=== PATIENT | female | born 1985 | race Caucasian/White ===

== ENCOUNTER 2016-07-22 22:48 | Emergency (ER) | payer OTHER ==
--- NOTE | 2016-07-23 00:41 | ED ORDER SUMMARY ---
..... Patient: TRELL JC OrderSheet [facility] VisitID: [id number] [place] [address] 31y, F Registration Date/Time: 07/22/2016 ORDER SHEET Weight: 52.1 kg (stated) Allergies: No Known Drug Allergy GENERAL ORDERS: CBC w Diff Urgent (23:07/22/2016 Chalino Brown) (Ack 23:16 AMcQuoid ER Tech1) (23:37 HSoule) CMP Urgent (:07/22/2016 Chalino Brown) (Ack 23:16 AMcQuoid ER Tech1) (23:37 HSoule) UA-Culture if indicated Urgent (:07/22/2016 Chalino Brown) (Ack 23:16 AMcQuoid ER Tech1) (0:36 HSoule) Lipase Urgent (:07/22/2016 Chalino Brown) (Ack 23:16 AMcQuoid ER Tech1) (23:39 AMcQuoid ER Tech1) Urine Urgent (:07/22/2016 Chalino Brown) (Ack 23:16 AMcQuoid ER Tech1) (0:36 HSoule) Pulse oximeter (:07/22/2016 Chalino Brown) (Ack 23:16 AMcQuoid ER Tech1) (23:20 HSoule) PCT (Procalcitonin) Urgent (00:12 07/23/2016 Chalino Brown) (0:18 AMcQuoid ER Tech1) MEDICATION ORDERS: Imodium PO 2 mg (15 min after zofran) (:07/22/2016 Chalino Brown) (Ack 23:20 HSoule) (23:39 HSoule) IV FLUIDS: IV NS : initial bolus 1000 mL (1000 mL/hr), then none - for X1 (NOW) (:07/22/2016 Chalino Brown) (23:20 HSoule) Zofran IV 4 mg (NOW) (:07/22/2016 Chalino Brown) (23:21 HSoule) Zofran IV 4 mg (NOW) (00:48 07/23/2016 Chalino Brown) (0:55 HSoule) ORDER SHEET NOTES: [Electronically signed by Shabana Coyne (04:07/23/2016)] [Electronically signed by Sav Barba Dr. (07:25 07/23/2016)] [Electronically locked/signed by Shabana Coyne (04:07/23/2016)]
--- NOTE | 2016-07-23 00:41 | ED NURSING NOTES ---
Clinical Report - Nurses [facility] [address] [place] [address] 07/22/2016 22:48 Patient: TRELL JC TRIAGE Triage time 23:07 Jul 22 2016. Acuity: LEVEL 3. Chief Complaint: NAUSEA, VOMITING and DIARRHEA. SEPSIS SCREEN: Sepsis Screen: negative. Negative (no infection suspected/documented). DIANNE COMA SCORE: Dianne Coma Scale: 15- eyes open spontaneously (4); best verbal response- oriented x 4 (5); best motor response- obeys commands (6). --23:13 Shabana Coyne 23:07 07/22/16. BP: 121/78. HR: 93. RR: 20. O2 saturation: 100%. Temp: 98 F (oral). Pain level now: 0/10. --23:13 Shabana Coyne. Weight: 52.1 kg stated. Height/Length: 65 inches Per Patient. BMI: 19.1. --23:08 Shabana Coyne. Medications Adderall Oral. --23:09 Shabana Coyne. Allergies No Known Drug Allergy. --23:09 Shabana Coyne. Medication/allergy information source: the patient. --23:13 Shabana Coyne. History Arrived by private vehicle. Historian: patient. Accompanied by family. Primary physician (Brooklynn). This started today. ( Patient states that she has been vomiting today all day and has not been able to stop throwing up. She denies belly pain.). Treatment ONLINE PROJECT MANAGER: None. PAST MEDICAL HX: Immunizations: up-to-date. Last normal menstrual period- 1 months irregular. SOCIAL HX: Never smoker. Occasional alcohol use. No drug use. No recent travel. No infectious disease exposure. No known contact with a sick individual. ABUSE ASSESSMENT: No report of abuse. FALL RISK ASSESSMENT: Fall risk assessment completed. No fall risk identified. NUTRITIONAL RISK ASSESSMENT: The nutritional risk assessment revealed no deficiencies. FUNCTIONAL ASSESSMENT: Functional assessment: no impairments noted. LEARNING NEEDS ASSESSMENT: The learning needs assessment revealed no barriers. SKIN INTEGRITY ASSESSMENT: Skin integrity risk assessment completed. No skin integrity risk identified. --23:13 Shabana Conye. PROBLEMS: Risk Factors. Dysmenorrhea. Tubal october 08 . . Gastroesophageal Reflux. Immunizations. LNMP - Last Normal Menstrual Period. --23:10 Shabana Coyne. ADDITIONAL SURGERIES: Appendectomy. IUD embedded in uturis had surg to remove. . IUD removal. Previous Abdominal Surgery. Tubal Ligation. Tubes removed. --23:10 Shabana Coyne. Interventions ID band on patient. To treatment room. --23:13 Shabana Coyne. PHYSICAL ASSESSMENT 23:13 07/22/16. Ambulatory to room. Patient gowned. GENERAL / NEURO / PSYCH: Alert. Oriented X 4. Appears in no acute distress. HEENT: Mucous membranes are pink. RESPIRATORY: Respirations not labored. CVS: Normal sinus rhythm noted. GI / : Abdomen soft and nontender. SKIN: Skin is warm and dry. --23:13 Shabana Coyne. NURSING PROGRESS NOTES Pulse oximeter and NIBP monitor placed on patient; monitor alarms on. Patient gowned. Reassurance given to the patient. Two patient identifiers checked. Call light placed in reach. Side rails up x 1. Bed placed in lowest position. Brakes of bed on. Patient ready for evaluation- chart flagged and ED physician notified. --23:14 Shabana Coyne 23:18 07/22/2016 Zofran (Ondansetron HCl) IVP 4 mg given over 2 minute(s) via site #1. Allergies verified and confirmed 5 rights. IV patency established. IV site checked: no pain, redness, or swelling. IV flushed thoroughly pre- and post-medication administration. IVP given by RN. --23:21 Shabana Coyne 23:20 07/22/2016 Site #1 started via IV in the left antecubital space with an 20g angiocath, with aseptic technique and good blood return; one attempt. Blood drawn: rainbow set. Labeled in the presence of the patient and sent to the lab. Saline lock flushed with saline. --23:20 Tejas Ken R.N. 23:20 07/22/2016 Started bag #1 1000 mL IV Fluids IV NS (Saline); at 1000 mL/hr over 1 hour(s) via site #1 via IV pump. Allergies verified and confirmed 5 rights. IV patency established. IV site checked: no pain, redness, or swelling. IV flushed thoroughly pre- and post-medication administration. --23:20 Shabana Coyne Patient ID band checked for patient name and birthdate: patient confirmed. Blood samples drawn from the left antecubital space peripheral IV site by nurse ; labeled in presence of the patient and sent to lab: rainbow set. Line flushed with 10 mL normal saline post blood draw. --23:21 Shabana Coyne 23:39 07/22/2016 Imodium (Loperamide HCl) PO Capsules 2 mg given. Allergies verified and confirmed 5 rights. --23:39 Shabana Coyne 00:02 07/23/16. BP: 115/82. HR: 90. RR: 20. O2 saturation: 100% on room air. --00:03 Shabana Coyne Reassessment after medication administered. Overall patient status- she states feels better. --00:03 Shabana Coyne 00:04 07/23/2016 IV Fluids IV NS Discontinued: bag #1 completed. Total amount infused: 1000 mL. IV patency established. IV site checked: no pain, redness, or swelling. IV flushed thoroughly. --00:14 Shabana Coyne Patient ID band checked for patient name and birthdate: patient confirmed. Instructions provided to collect clean catch urine and patient verbalized understanding. Clean catch urine collected with return of yellow-colored clear urine; sample sent to lab for urinalysis, culture and HCG. Specimen labeled in the presence of the patient. --00:18 Shabana Coyne 00:50 07/23/2016 Zofran (Ondansetron HCl) IVP 4 mg given over 2 minute(s) via site #1. Allergies verified and confirmed 5 rights. IV patency established. IV site checked: no pain, redness, or swelling. IV flushed thoroughly pre- and post-medication administration. IVP given by RN. --00:55 Shabana Coyne 00:50 07/23/2016 Site #1 removed upon discharge. Catheter intact. Bandaid applied. --00:55 Shabana Coyne. DISPOSITION / DISCHARGE 00:56 07/23/16. Condition at departure: improved and stable. The goals identified in the patient's plan of care were met. No learning barriers present. Discharge instructions provided and reviewed with the patient and spouse. Reviewed medication(s) side effects, precautions, dosing and course information. Prescription(s) given to the patient. Reviewed need for increased fluid intake. Patient verbalized understanding. Written instructions provided in Spanish. ( Follow up with PCP as needed.). The patient was discharged by the physician. She was discharged home and accompanied by spouse. She left the Emergency Department ambulatory and via private vehicle. Spouse driving. FALL RISK ASSESSMENT: Fall risk assessment completed. No fall risk identified. --00:56 Shabana Coyne 00:55 07/23/16. BP: 110/68. HR: 85. RR: 20. O2 saturation: 100% on room air. Temp: 98.3 F (oral). Pain level now: 0/10. --00:56 Shabana Coyne. Locked/Released at 07/23/2016 4:27 by Shabana Coyne,
--- NOTE | 2016-07-23 00:41 | ED ORDER SUMMARY ---
..... Patient: TRELL JC OrderSheet [facility] VisitID: [id number] [place] [address] 31y, F Registration Date/Time: 07/22/2016 ORDER SHEET Weight: 52.1 kg (stated) Allergies: No Known Drug Allergy GENERAL ORDERS: CBC w Diff Urgent (23:07/22/2016 Chalino Brown) (Ack 23:16 AMcQuoid ER Tech1) (23:37 HSoule) CMP Urgent (:07/22/2016 Chalino Brown) (Ack 23:16 AMcQuoid ER Tech1) (23:37 HSoule) UA-Culture if indicated Urgent (:07/22/2016 Chalino Brown) (Ack 23:16 AMcQuoid ER Tech1) (0:36 HSoule) Lipase Urgent (:07/22/2016 Chalino Brown) (Ack 23:16 AMcQuoid ER Tech1) (23:39 AMcQuoid ER Tech1) Urine Urgent (:07/22/2016 Chalino Brown) (Ack 23:16 AMcQuoid ER Tech1) (0:36 HSoule) Pulse oximeter (:07/22/2016 Chalino Brown) (Ack 23:16 AMcQuoid ER Tech1) (23:20 HSoule) PCT (Procalcitonin) Urgent (00:12 07/23/2016 Chalino Brown) (0:18 AMcQuoid ER Tech1) MEDICATION ORDERS: Imodium PO 2 mg (15 min after zofran) (:07/22/2016 Chalino Brown) (Ack 23:20 HSoule) (23:39 HSoule) IV FLUIDS: IV NS : initial bolus 1000 mL (1000 mL/hr), then none - for X1 (NOW) (:07/22/2016 Chalino Brown) (23:20 HSoule) Zofran IV 4 mg (NOW) (:07/22/2016 Chalino Brown) (23:21 HSoule) Zofran IV 4 mg (NOW) (00:48 07/23/2016 Chalino Brown) (0:55 HSoule) ORDER SHEET NOTES: [Electronically signed by Shabana Coyne (04:07/23/2016)] [Electronically signed by Sav Barba Dr. (07:25 07/23/2016)] [Electronically locked/signed by Shabana Coyne (04:07/23/2016)]
--- NOTE | 2016-07-23 00:41 | ED CLINICAL REPORT ---
Clinical Report - Physicians/Mid Levels [facility] [address] [place] [address] 07/22/2016 22:48 Patient: TRELL JC Arrived- By private vehicle. Historian- patient. HISTORY OF PRESENT ILLNESS Chief Complaint: VOMITING and DIARRHEA. This started today and is still present (worsening). It was abrupt in onset and has been intermittent but is not gone now. No recent travel. She has had nausea, vomiting and diarrhea. No black stools, bloody stools, abdominal pain, flank pain or history of possible bad food exposure. Has not recently been camping or on antibiotics. She has had contact with a sick significant other. The illness is described as moderate. Similar symptoms previously: Recent medical care: The patient was seen recently by a health care provider. REVIEW OF SYSTEMS No fever, muscle aches, difficulty with urination, dark urine or chest pain. No difficulty breathing or skin rash. All systems otherwise negative, except as recorded above. PAST HISTORY See nurses notes. Medications: Adderall Oral. Allergies: No Known Drug Allergy. SOCIAL HISTORY Never smoker. No alcohol use or drug use. No recent travel. Is a local resident. ADDITIONAL NOTES The nursing notes have been reviewed. PHYSICAL EXAM Vital Signs: 07/22/2016 23:07 BP: 121/78. HR: 93. RR: 20. O2 saturation: 100%. Temp: 98 F. Pain level now: 0/10. Blood pressure normal. Oxygen saturation normal. Appearance: Alert. Oriented X3. No acute distress. Eyes: Pupils equal, round and reactive to light. Eyes normal inspection. ENT: Ears normal. Nose normal. Pharynx normal. Neck: Normal inspection. Neck supple. CVS: Normal heart rate and rhythm. Heart sounds normal. Pulses normal. Respiratory: No respiratory distress. Breath sounds normal. No rales, rhonchi or wheezes. Abdomen: Soft and nontender. Bowel sounds normal. (negative Corrales's. No tenderness at McBurney's point. No rebound or guarding.). Back: Normal inspection. Skin: Skin warm and dry. Normal skin color. No rash. Normal skin turgor. Extremities: Extremities exhibit normal ROM. No lower extremity edema. LABS, X-RAYS, AND EKG Laboratory Tests: UA-Culture if indicated: (PAYTON: 07/22/2016 00:15) ( [facility] [place] 07/23/2016 00:32) Final results Test Result Flag Units (Reference) URINE COLOR YELLOW URINE APPEARANCE CLEAR URINE GLUCOSE NEGATIVE (NEGATIVE) URINE BILIRUBIN NEGATIVE (NEGATIVE) URINE KETONE 3+ (NEGATIVE) URINE SPECIFIC GRAVITY 1.015 (1.010-1.030) URINE PH 7.5 (5.0-8.0) URINE PROTEIN NEGATIVE (NEGATIVE) URINE UROBILINOGEN 0.2 EU/dL (0.2-1.0) URINE NITRITE NEGATIVE (NEGATIVE) URINE BLOOD NEGATIVE (NEGATIVE) URINE LEUK ESTERASE NEGATIVE (NEGATIVE) URINE RBC RARE rbc/hpf (0-1) URINE WBC NONE SEEN wbc/hpf (0-1) URINE EPITHELIAL CELLS 0-1 EPI/hpf (0-5) URINE BACTERIA NONE SEEN (NONE SEEN) URINE COMMENT CULT NOT INDICATED URINE CULTURES ARE SET-UP BASED ON THE FOLLOWING CRITERIA:POSITIVE NITRITEPOSITIVE LEUKOCYTE ESTERASEGREATER THAN 10 WHITE BLOOD CELLSMODERATE (2+) OR GREATER BACTERIA Urine: (PAYTON: 07/22/2016 00:15) ( [facility] [place] 07/23/2016 00:24) Final results Test Result Flag Units (Reference) URINE NEGATIVE CBC w Diff: (PAYTON: 07/22/2016 23:15) ( [facility] 07/22/2016 23:40) Final results Test Result Flag Units (Reference) WHITE BLOOD COUNT 15.4 H K/uL (4.5-11.5) RED BLOOD COUNT 5.24 H M/uL (4.00-5.20) HEMOGLOBIN 14.9 gm/dL (12.0-16.0) HEMATOCRIT 46.0 % (36.0-46.0) MEAN CELL VOLUME 88 fL (80-100) MEAN CORPUSCULAR HGB 29 pg (26-34) MEAN CORPUSCULAR HGB CONC 33 g/dL (31-37) RED CELL DISTRIBUTION WIDTH 13.0 % (11.6-14.8) PLATELET COUNT 229 K/uL (150-400) NEUTROPHIL % 91.0 H % (50-75) LYMPH % 6.7 L % (25-40) MONO % 2.3 L % (3-14) CMP: (PAYTON: 07/22/2016 23:15) ( MsgRcvd 07/22/2016 23:35) Final results Test Result Flag Units (Reference) GLUCOSE 114 H mg/dL (70-110) BUN 18 mg/dL (7-18) CREATININE 0.9 mg/dL (0.6-1.3) Estimated GFR >60 mL/min Estimated GFR- >60 mL/min Note: Persistent reduction over 3 months in eGFR<60 mL/min/1.73 m2 defines CKD. Patients with eGFR values>=60 mL/min/1.73 m2 may also have CKD if evidence ofpersistent proteinuria. Additional information may be foundat www.kidney.org. SODIUM 139 mmol/L (136-145) POTASSIUM 4.5 mmol/L (3.5-5.1) CHLORIDE 102 mmol/L (98-107) CARBON DIOXIDE 24 mmol/L (21-32) CALCIUM 9.0 mg/dL (8.5-10.1) TOTAL PROTEIN 8.3 H g/dL (6.4-8.2) ALBUMIN 4.7 g/dL (3.3-5.0) BILIRUBIN, TOTAL 0.4 mg/dL (0.0-1.0) ALKALINE PHOSPHATASE 51 U/L (46-116) AST (SGOT) 20 U/L (15-37) ALT (SGPT) 26 U/L (12-78) LIPASE 181 U/L (73-393) . PROGRESS AND PROCEDURES Course of Care: the patient is a pleasant 31-year-old female with no pertinent past medical history presenting for evaluation ofnausea vomiting diarrhea. Patient has no abdominal pain. Patient is mainly concerned about the nausea and vomiting and diarrhea. Abdominal exam is benign. Did not feel patient needs any imaging of her abdomen at this time. Denies the patient has surgical abdomen. We'll evaluate patient's symptoms with CBC and electrolytesfor any metabolic derangements from her diarrhea. Patient likely with mild dehydration. We'll obtain laboratory studies and provide fluids With the nausea medication. Patient was reevaluated after the nausea medication as been given. Patient reports that she feels much better. Patient resting in bed in no acute distress. Repeat abdominal exam continues to be benign. We are still waiting patient's urinalysis. Patient's urinalysis did not show any acute abnormalities. No urinary tract infection. Patient with signs of dehydration on examination. patient was blood cell count up. Do not feel patient has more sinister etiology for her elevation in her white blood cell count. Patient likely with seemed viral type illness as significant other. Patient noted to be doing much better after medications and IV fluids given. did not the patient is being admitted to the hospital or require further emergency department evaluation. Patient's abdomen exam is benign. Discussed the patient workup, diagnosis, home care, follow-up, and return precautions. Answered. The patient expressed understanding of these instructions and was agreeable to them. Disposition: Discharged. Condition: good. CLINICAL IMPRESSION Vomiting with nausea (acute). Diarrhea (acute). 07/23/2016 00:02 BP: 115/82. HR: 90. RR: 20. O2 saturation: 100%. 07/22/2016 23:07 BP: 121/78. HR: 93. RR: 20. O2 saturation: 100%. Temp: 98 F. Pain level now: 0/10. Blood pressure normal. Oxygen saturation normal. Mild dehydration (acute). Mild leukocytosis (acute). No bandemia. INSTRUCTIONS Warnings: GENERAL WARNINGS: Return or contact your physician immediately if your condition worsens or changes unexpectedly, if not improving as expected, or if other problems arise. SPECIFICALLY, return if you develop pain, fever, vomiting, the inability to keep fluids down, blood in vomitus, blood in diarrhea, fainting or lightheadedness. Your Current Medications: CONTINUE TAKING THE FOLLOWING MEDICATIONS: Adderall Oral. Prescription Medications: Zofran (orally disintegrating tablets) 4 mg: take 1 orally every 8 hours as needed for nausea and vomiting. Dispense ten (10). No refill. Substitution is permissible. OTC Medications: Imodium (available over the counter): take according to label instructions. Follow-up: Return to the emergency department as needed. Follow up with your doctor in three days. Reason for referral: recheck today's concerns. Summary of care provided to patient via paper. Screening today revealed the patient's blood pressure to be in the normal range. The patient should follow up with a primary care provider for blood pressure management. (Electronically signed by Sav Barba Dr. 07/23/2016 7:25)
--- NOTE | 2016-07-23 07:25 | ED MAR SUMMARY ---
..... Medication Administration Record [facility] [address] [place] [address] Patient: TRELL JC Visit ID: [id number] 31y, F Weight: 52.1 kg Height/Length: 65 in BMI: 19.1 ALLERGIES: No Known Drug Allergy Given 23:18 07/22/2016 Shabana Coyne, Medication Administered: ZOFRAN [IVP] (ONDANSETRON HCL), Dose: 4 mg IVP over 2 minute(s), Site: #1. Medication Ordered: Zofran IV 4 mg (NOW). Start 23:20 07/22/2016 Shabana Coyne,, Stop 00:04 07/23/2016 Shabana Coyne, Medication Administered: IV NS (SALINE), Dose: IV Fluids over 1 hour(s), Rate: 1000 mL/hr, Dispensed: 1000 mL bag, Site: #1 left AC. Medication Ordered: IV NS : initial bolus 1000 mL (1000 mL/hr), then none - for X1 (NOW). Given 23:39 07/22/2016 Shabana Coyne, Medication Administered: IMODIUM [PO] (LOPERAMIDE HCL), Dose: 2 mg Capsules PO. Medication Ordered: Imodium PO 2 mg (15 min after zofran). Given 00:50 07/23/2016 Shabana Coyne, Medication Administered: ZOFRAN [IVP] (ONDANSETRON HCL), Dose: 4 mg IVP over 2 minute(s), Site: #1. Medication Ordered: Zofran IV 4 mg (NOW).
--- NOTE | 2016-07-23 07:25 | ED MAR SUMMARY ---
..... Medication Administration Record [facility] [address] [place] [address] Patient: TRELL JC Visit ID: [id number] 31y, F Weight: 52.1 kg Height/Length: 65 in BMI: 19.1 ALLERGIES: No Known Drug Allergy Given 23:18 07/22/2016 Shabana Coyne, Medication Administered: ZOFRAN [IVP] (ONDANSETRON HCL), Dose: 4 mg IVP over 2 minute(s), Site: #1. Medication Ordered: Zofran IV 4 mg (NOW). Start 23:20 07/22/2016 Shabana Coyne,, Stop 00:04 07/23/2016 Shabana Coyne, Medication Administered: IV NS (SALINE), Dose: IV Fluids over 1 hour(s), Rate: 1000 mL/hr, Dispensed: 1000 mL bag, Site: #1 left AC. Medication Ordered: IV NS : initial bolus 1000 mL (1000 mL/hr), then none - for X1 (NOW). Given 23:39 07/22/2016 Shabana Coyne, Medication Administered: IMODIUM [PO] (LOPERAMIDE HCL), Dose: 2 mg Capsules PO. Medication Ordered: Imodium PO 2 mg (15 min after zofran). Given 00:50 07/23/2016 Shabana Coyne, Medication Administered: ZOFRAN [IVP] (ONDANSETRON HCL), Dose: 4 mg IVP over 2 minute(s), Site: #1. Medication Ordered: Zofran IV 4 mg (NOW).
--- NOTE | 2016-07-23 07:25 | ED MED RECONCILIATION SUMMARY ---
Patient: TRELL JC Medication Reconciliation Report [facility] VisitID: [id number] [address] [place] [address] 31y, F Registration Date/Time: 07/22/2016 Weight: 52.1 kg Height/Length: 65 in. BMI: 19.1 ALLERGIES: No Known Drug Allergy The patient's Home Medications are listed below: CONTINUE TAKING THE FOLLOWING MEDICATIONS: Adderall Oral The source(s) of the original Home Medication information: patient The following Medications were given to the patient in the Emergency Department: IV NS IV Fluids bolus 0, then 1000 mL/hr, administered: 07/22/2016 11:20:00 PM Zofran [IVP] IVP 4 mg, administered: 07/22/2016 11:18:00 PM Imodium [PO] PO 2 mg, administered: 07/22/2016 11:39:00 PM Zofran [IVP] IVP 4 mg, administered: 07/23/2016 12:50:00 AM The following Medications were prescribed to the patient: Zofran (orally disintegrating tablets) 4 mg: take 1 orally every 8 hours as needed for nausea and vomiting. Dispense ten (10). No refill. Substitution is permissible. -- Sav Barba Dr. Imodium (available over the counter): take according to label instructions. -- Sav Barba Dr.
--- NOTE | 2016-07-23 07:25 | ED DISCHARGE INSTRUCTIONS ---
Patient: RTELL JC General Instructions [facility] VisitID: [id number] [place] [address] 31y, F Registration Date/Time: 07/22/2016 Vomiting with nausea (acute). Diarrhea (acute). 07/23/2016 00:02 BP: 115/82. HR: 90. RR: 20. O2 saturation: 100%. 07/22/2016 23:07 BP: 121/78. HR: 93. RR: 20. O2 saturation: 100%. Temp: 98 F. Pain level now: 0/10. Blood pressure normal. Oxygen saturation normal. Mild dehydration (acute). Mild leukocytosis (acute). No bandemia. INSTRUCTIONS Warnings: GENERAL WARNINGS: Return or contact your physician immediately if your condition worsens or changes unexpectedly, if not improving as expected, or if other problems arise. SPECIFICALLY, return if you develop pain, fever, vomiting, the inability to keep fluids down, blood in vomitus, blood in diarrhea, fainting or lightheadedness. Your Current Medications: CONTINUE TAKING THE FOLLOWING MEDICATIONS: Adderall Oral. Prescription Medications: Zofran (orally disintegrating tablets) 4 mg: take 1 orally every 8 hours as needed for nausea and vomiting. Dispense ten (10). No refill. Substitution is permissible. OTC Medications: Imodium (available over the counter): take according to label instructions. Follow-up: Return to the emergency department as needed. Follow up with your doctor in three days. Reason for referral: recheck today's concerns. Summary of care provided to patient via paper. Screening today revealed the patient's blood pressure to be in the normal range. The patient should follow up with a primary care provider for blood pressure management. ADDITIONAL INFORMATION Vomiting [6Yr-Adult] Vomiting is a common symptom that may be due to different causes. These include gastroenteritis ("stomach flu"), food poisoning and gastritis. There are other more serious causes of vomiting which may be hard to diagnose early in the illness. Therefore, it is important to watch for the warning signs listed below. The main danger from repeated vomiting is dehydration. This is due to excess loss of water and minerals from the body. When this occurs, body fluids must be replaced. Home Care: If symptoms are severe, rest at home for the next 24 hours. You may use acetaminophen (Tylenol) or ibuprofen (Motrin, Advil) to control fever, unless another medicine was prescribed. [NOTE : If you have chronic liver or kidney disease or ever had a stomach ulcer or GI bleeding, talk with your doctor before using these medicines.] (Aspirin should never be used in anyone under 18 years of age who is ill with a fever. It may cause severe liver damage.) Avoid tobacco and alcohol use, which may worsen your symptoms. If medicines for vomiting were prescribed, take as directed. Once vomiting stops, then follow these guidelines: During The First 12-24 Hours follow the diet below: FRUIT JUICES: Apple, grape juice, clear fruit drinks, and electrolyte replacement drinks. BEVERAGES: Soft drinks without caffeine; mineral water (plain or flavored), decaffeinated tea and coffee. SOUPS: Clear broth, consomm and bouillon DESSERTS: Plain gelatin, popsicles and fruit juice bars. As you feel better, you may add 6-8 ounces of yogurt per day. During The Next 24 Hours you may add the following to the above: Hot cereal, plain toast, bread, rolls, crackers Plain noodles, rice, mashed potatoes, chicken noodle or rice soup Unsweetened canned fruit (avoid pineapple), bananas Limit caffeine and chocolate. No spices or seasonings except salt. During The Next 24 Hours Gradually resume a normal diet, as you feel better and your symptoms lessen. Follow Up with your doctor as advised if you are not improving over the next 2-3 days. Get Prompt Medical Attention if any of the following occur: Constant right-sided lower abdominal pain or increasing general abdominal pain Continued vomiting (unable to keep liquids down) for 24 hours Frequent diarrhea (more than 5 times a day); blood (red or black color) or mucus in diarrhea Reduced urine output or extreme thirst Weakness, dizziness or fainting Unusually drowsy or confused Fever of 100.4F (38C) oral or higher, not better with fever medication Yellow color of the eyes or skin Diarrhea, Uncertain Cause (Adult, Report Pending) Diarrhea has several possible causes. Commonstomach fluis caused by a virus. Food poisoning, bacteria or parasites are other causes for diarrhea. Only diarrhea caused by bacteria or parasites requires treatment with an antibiotic. Diarrhea from a virus or food poisoning improves with simple home treatment. A stool sample is needed to make the diagnosis of an infection with bacteria or parasites. Up to three stool specimens may be required to diagnose This may take up to two days to get the result. It may be necessary to wait until the stool test is complete to make the diagnosis and select the best antibiotic to prescribe. Home Care: If symptoms are severe, rest at home for the next 24 hours or until you are feeling better. You may use acetaminophen (Tylenol) or ibuprofen (Motrin, Advil) to control fever, unless another medicine was prescribed. [NOTE: If you have chronic liver or kidney disease or ever had a stomach ulcer or GI bleeding, talk with your doctor before using these medicines.] (Aspirin should never be used in anyone under 18 years of age who is ill with a fever. It may cause severe liver damage.) Avoid tobacco, caffeine and alcohol, which may worsen your symptoms. If anti-diarrhea medicine was prescribed, take this only as directed. Sometimes anti-diarrhea medicine can make your condition worse if the cause is an infectious diarrhea. Therefore, anti-diarrhea medicine should not be taken for this condition unless advised by your doctor. During The First 12-24 Hours follow the diet below: BEVERAGES: Sport drinks like Gatorade, soft drinks without caffeine; caity preston, mineral water (plain or flavored), decaffeinated tea and coffee. SOUPS: Clear broth, consomm and bouillon DESSERTS: Plain gelatin (Jell-O), popsicles and fruit juice bars. During The Next 24 Hours you may add the following to the above: Hot cereal, plain toast, bread, rolls, crackers Plain noodles, rice, mashed potatoes, chicken noodle or rice soup Unsweetened canned fruit (avoid pineapple), bananas Limit fat intake to less than 15 grams per day by avoiding margarine, butter, oils, mayonnaise, sauces, gravies, fried foods, peanut butter, meat, poultry and fish. Limit fiber; avoid raw or cooked vegetables, fresh fruits (except bananas) and bran cereals. Limit caffeine and chocolate. No spices or seasonings except salt. During The Next 24 Hours Gradually resume a normal diet, as you feel better and your symptoms lessen. Follow Up with your doctor or as advised if you are not improving over the next two days. If you were asked to bring a specimen from home, bring the sample on the day of collection. You may call in 2 days (or as directed) for the results. Get Prompt Medical Attention if any of the following occur: Increasing abdominal pain or constant lower right abdominal pain Continued vomiting (unable to keep liquids down) Frequent diarrhea (more than 5 times a day) Blood in vomit or stool (black or red color) Reduced oral intake Dark urine, reduced urine output Weakness, dizziness, fainting Drowsiness, confusion, stiff neck or seizure Fever of 100.4F (38C) oral or higher, not better with fever medication New rash Dehydration (Adult) Dehydration occurs when your body loses too much fluid. This may be the result of vomiting a lot or from diarrhea,sweating a lot, or a high fever. It may also happen if you dont drink enough fluid when youre sick. Misuse of diuretics (water pills) can also be a cause. Symptoms include thirst and feeling dizzy, weak, fatigued, or very drowsy. The diet described below is usually enough to treat most cases. Sometimes you may needmedicine. Home Care Follow these guidelines for home care: Drink at least 12 8-ounce glasses of fluid every day to overcome the dehydration. Fluid may include water; orange juice; lemonade; apple, grape, and cranberry juice; clear fruit drinks; electrolyte replacement and sports drinks; and teas and coffee without caffeine. If you have been diagnosed with a kidney disease, ask your doctor how much and what types of fluids you should drink to prevent dehydration. If you have kidney disease, drinking too much fluid can cause it build up in the your body and be dangerous to your health. If you have fever, muscle aching, or headache from a viral syndrome, you may useacetaminophen or ibuprofen, unless another medicine was prescribed for this.If you have chronic liver or kidney disease or ever had a stomach ulcer or GI bleeding, talk with your doctor before using these medicines. Don't take aspirin if you are younger than 18 and are ill with a fever.Aspirin raises the chance forsevere liver injury. Follow-up care Follow up with your health care provider if you don't get better in the next 24 to 48 hours. When to seek medical care Get prompt medical attention if any of theseoccur: Continued vomiting (cant keep liquids down) Frequent diarrhea (more than 5 times a day); blood (red or black color) or mucus in diarrhea Blood in vomit or stool Swollen abdomen or increasing abdominal pain Weakness, dizziness, or fainting Unusually drowsy or confused Reduced urine output or extreme thirst Fever of 100.4 F (38 C) oral or higher that does not get better with fever medication Ondansetron Oral disintegrating tablet What is this medicine? ONDANSETRON (on CAYETANO se nadia) is used to treat nausea and vomiting caused by chemotherapy. It is also used to prevent or treat nausea and vomiting after surgery. How should I use this medicine? These tablets are made to dissolve in the mouth. Do not try to push the tablet through the foil backing. With dry hands, peel away the foil backing and gently remove the tablet. Place the tablet in the mouth and allow it to dissolve, then swallow. While you may take these tablets with water, it is not necessary to do so. Talk to your database support regarding the use of this medicine in children. Special care may be needed. What side effects may I notice from receiving this medicine? Side effects that you should report to your doctor or health critical care nurse practitioner as soon as possible: allergic reactions like skin rash, itching or hives, swelling of the face, lips, or tongue breathing problems dizziness fast or irregular heartbeat feeling faint or lightheaded, falls fever and chills swelling of the hands and feet tightness in the chest Side effects that usually do not require medical attention (report to your doctor or health critical care nurse practitioner if they continue or are bothersome): constipation or diarrhea headache What may interact with this medicine? Do not take this medicine with any of the following medications: -apomorphine -cisapride -dofetilide -dronedarone -pimozide -thioridazine -ziprasidone This medicine may also interact with the following medications: -carbamazepine -phenytoin -rifampicin -tramadol -other medicines that prolong the QT interval (cause an abnormal heart rhythm) What if I miss a dose? If you miss a dose, take it as soon as you can. If it is almost time for your next dose, take only that dose. Do not take double or extra doses. Where should I keep my medicine? Keep out of the reach of children. Store between 2 and 30 degrees C (36 and 86 degrees F). Throw away any unused medicine after the expiration date. What should I tell my health care provider before I take this medicine? They need to know if you have any of these conditions: heart disease history of irregular heartbeat liver disease low levels of magnesium or potassium in the blood an unusual or allergic reaction to ondansetron, granisetron, other medicines, foods, dyes, or preservatives or trying to get breast-feeding What should I watch for while using this medicine? Check with your doctor or health critical care nurse practitioner as soon as you can if you have any sign of an allergic reaction. You have been given the following additional information: Vomiting (6Y-Adult) Diarrhea, Unk Cause (Adult) Report Pendg Dehydration (Adult) Ondansetron Oral disintegrating tablet (Electronically signed by Sav Barba Dr. 07/23/2016 7:25)
--- NOTE | 2016-07-23 07:25 | ED MED RECONCILIATION SUMMARY ---
Patient: TRELL JC Medication Reconciliation Report VisitID: [id number] [place] [address] 31y, F Registration Date/Time: 07/22/2016 Weight: 52.1 kg Height/Length: 65 in. BMI: 19.1 ALLERGIES: No Known Drug Allergy The patient's Home Medications are listed below: CONTINUE TAKING THE FOLLOWING MEDICATIONS: Adderall Oral The source(s) of the original Home Medication information: patient The following Medications were given to the patient in the Emergency Department: IV NS IV Fluids bolus 0, then 1000 mL/hr, administered: 07/22/2016 11:20:00 PM Zofran [IVP] IVP 4 mg, administered: 07/22/2016 11:18:00 PM Imodium [PO] PO 2 mg, administered: 07/22/2016 11:39:00 PM Zofran [IVP] IVP 4 mg, administered: 07/23/2016 12:50:00 AM The following Medications were prescribed to the patient: Zofran (orally disintegrating tablets) 4 mg: take 1 orally every 8 hours as needed for nausea and vomiting. Dispense ten (10). No refill. Substitution is permissible. -- Sav Barba Dr. Imodium (available over the counter): take according to label instructions. -- Sav Barba Dr.
== END 2016-07-23 01:00 | disposition home or self-care (01) ==
LOC: ED SRH 22:48
DX: R11.2 Nausea with vomiting, unspecified (principal); R19.7 Diarrhea, unspecified; E86.0 Dehydration; D72.829 Elevated white blood cell count, unspecified
CPT/HCPCS: 90004; 90100; 92235; 93004; 93070; 95059